=== PATIENT | female | born 1990 | race Caucasian/White ===

== ENCOUNTER 2025-03-09 13:05 | Outpatient (CLI) | payer OTHER, SELFPAY ==
--- OUTSIDE RECORDS SUMMARY | 2025-03-09 13:49 | XMS_ITS | Clinical Summary ---
Author Organization [facility] [employer] Address [address] [place] [address] Care Team Providers Care Balance Truer Name Role Phone Madhu Martínez MD Primary Care Provider [phone] Source Comments [facility] [employer],non-owned Affiliates and Associated Physician Practices is amultiple site organization consisting of ambulatory clinics and hospital sitesin [place] and [place]. This disclosure is being madepursuant to the Care Everywhere program and may not contain all information available regarding this patient. Last updated 18.[facility] [employer] Allergies No known active allergies Medications * Be aware that medications may not be up to date on this document. Alwaysverify current medications with the patient. escitalopram (LEXAPRO) 10 MG tablet Take 10 mg by mouth once daily Active Social History Tobacco Use Types Packs/Day Years Used Date Smoking Tobacco: Never Assessed Comments Unknown Sex and Gender Information Value Date Recorded Sex Assigned at Not on file Legal Sex Female 6:56 AM CDT Gender Identity Not on file Sexual Orientation Not on file Last Filed Vital Signs Vital Sign Reading Time Taken Comments Blood Pressure 116/68 01/21/2018 7:48 AM CDT Pulse 100 01/21/2018 7:48 AM CDT Temperature 36.8 C (98.2 F) 01/21/2018 7:48 AM CDT Respiratory Rate - - Oxygen Saturation 99% 01/21/2018 7:48 AM CDT Inhaled Oxygen Concentration - - Weight 74.8 kg (165 lb) 01/21/2018 7:48 AM CDT Height 157.5 cm (5' 2) 01/21/2018 7:48 AM CDT Body Mass Index 30.18 01/21/2018 7:48 AM CDT Plan of Treatment Health Maintenance Due Date Last Done Comments HIV SCREENING 2003 HEPATITIS C SCREENING 06/16/2006 DTAP/TDAP/TD VACCINES (1 - Tdap) 2007 HEPATITIS B VACCINE (1 of 3 - 19+ 3-dose series) 2007 HPV VACCINE (1 - 3-dose SCDM series) 2015 DEPRESSION SCREENING 04/27/2024 COVID-19 VACCINE (1 - 2023-2 5 season) 2024 INFLUENZA VACCINE (#1) 2024 ZOSTER VACCINE (1 of 2) 2038 HIB VACCINE Aged Out No longer eligi ble based on patient's age to complete this topic MENINGOCOCCAL (Group B) VACC INE SHARED DECISION-MAKING Aged Out No longer eligibl e based on patient's age to complete this topic MENINGOCOCCAL GROUPS A/C/Y/W VACCINE Aged Out No longer eligible b ased on patient's age to complete this topic PNEUMOCOCCAL VACCINE Aged Out No long er eligible based on patient's age to complete this topic Insurance [employer] Care Teams Balance Truer Relationship Specialty Start Date [place] Date Madhu [place] [address] [place] [address] [address] PCP - General Internal Medicine 01/21/18
--- OUTSIDE RECORDS SUMMARY | 2025-03-09 13:49 | XMS_ITS | Clinical Summary ---
Author Organization [facility] Address [address] [place] [address] Phone Care Team Providers Care Attendant Honor Bar Name Role Phone Provider, None Primary Care Provider Unavailabl e Allergies No known active allergies Medications escitalopram (LEXAPRO) 20 MG Tablet Take 20 mg by mouth daily. 03/08/2020 Active buPROPion (WELLBUTRIN) 75 MG Tablet Take 75 mg by mouth daily. Active Active Problems No known active problems Encounters Date Type Department Care Team Description 01/02/2025 5:45 PM CDT Urgent Care Visit [facility] [address] [place] [address] Bisi Yañez APRN, CNP Respiratory infection (Primary Dx); Sore throat Discharge Disposition: Discharged to home or Selfcare 01/02/2025 Travel 12/29/2024 12:20 PM CDT Urgent Care Visit [facility] [address] [place] [address] Trino Gonzalez, ANGELICA Acute ear pain, left (Primary Dx) Discharge Disposition: Discharged to home or Selfcare 12/29/2024 Travel from Last 3 Months Social History Tobacco Use Types Packs/Day Years Used Date Smoking Tobacco: Never Smokeless Tobacco: Never Tobacco Cessation:Counseling Given: Not Answered Alcohol Use Standard Drinks/Week Comments Yes 0 (1 standard drink = 0.6 oz pur e alcohol) Comments No Sex and Gender Information Value Date Recorded Sex Assigned at Not on file Legal Sex Female 10:46 PM CDT Gender Identity Not on file Sexual Orientation Not on file Last Filed Vital Signs Vital Sign Reading Time Taken Comments Blood Pressure 108/60 01/02/2025 5:47 PM CDT Pulse 99 01/02/2025 5:47 PM CDT Temperature 36.6 C (97.9 F) 01/02/2025 5:47 PM CDT Respiratory Rate 16 01/02/2025 5:47 PM CDT Oxygen Saturation 99% 01/02/2025 5:47 PM CDT Inhaled Oxygen Concentration - - Weight 78.9 kg (174 lb) 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 Height 157.5 cm (5' 2) 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 Body Mass Index 31.83 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 Plan of Treatment Health Maintenance Due Date Last Done Comments Hepatitis C Virus (HCV) Screening 1988 Hepatitis B Immunization (1 of 3 - 19+ 3-dose series) 2007 Pap Smear 2009 Human Papillomavirus (HPV) Immunization (1 - 3-dose SCDM series) 2015 Cervical Cancer Screening (CCS) 2018 HPV/Cotest 2018 Influenza Immunization (#1) 12/26/202402/25, 02/11/2016 SARS-COV-2 Immunization (2024- season) 2024 08/06/2020, 07/09/2020 Respiratory Syncytial Virus (RSV) Immunization (Adult) (1 - 1-dose 75+ series) 2063 DTaP/Tdap/Td Immunization Discontinued 2015, 01/14/2013 TdaP Immunization Completed 03/26/2016, 01/14/2013 Meningococcal Immunization (ACWY) Aged Out No longer eligible based on patient's age to complete this topic Pneumococcal Immunization Combined Aged Out No longer eligible based on patient's age to complete this topic Rotavirus Immunization Aged Out No lo nger eligible based on patient's age to complete this topic Procedures Procedure Name Priority Date/Time Associated Diagnosis Comments POC GROUP A STREP BY MOLECULAR Routine 01/02/2025 5:53 PM CDT Sore throat from Last 3 Months Results * POC GROUP A STREP BY MOLECULAR (01/02/2025 5:53 PM CDT) STREP A DNA Negative Negative, Invalid PROCEDURE CONTROL Valid 01/02/2025 5:53 PM CDT Bisi Yañez WEB CONTENT & SOCIAL MEDIA MANAGER, PERFUMER POINT OF CARE TEST ING (MANUAL) Final Result from Last 3 Months Insurance [employer] Care Teams Attendant Honor Bar Relationship Specialty Start Date End Date Provider, None [place] PCP - General 04/06/20
--- OUTSIDE RECORDS SUMMARY | 2025-03-09 13:49 | XMS_ITS | Clinical Summary ---
Author Organization [facility] Address [address] [place] [address] Care Team Providers Care Physician Anesthesiologist Name Role Phone Madhu Martínez MD Primary Care Provider Allergies No known active allergies Medications escitalopram (LEXAPRO) 20 mg tablet Take 1 tablet (20 mg total) by mouth daily Active buPROPion (WELLBUTRIN) 75 mg tablet Take 1 tablet (75 mg total) by mouth daily Active semaglutide (Wegovy) 1.7 mg/0.75 mL auto-injector Inject 0.75 mL (1.7 mg total) under the skin every 7 days Active Active Problems Problem Noted Date Diagnosed Date Unilateral occipital headache 11/16/2017 Immunizations Immunization Administration Dates Next Due PPD TEST 12/11/2023 Medical History Medical History Date Comments Heart murmur Heart murmur Family History Medical History Relation Name Comments Hypertension Brother Hypertension; Hypertension Maternal Grandmother Hyperte nsion; Relation Name Status Comments Brother Maternal Grandmother Social History Tobacco Use Types Packs/Day Years Used Date Smoking Tobacco: Never Alcohol Use Standard Drinks/Week Comments Yes 0 (1 standard drink = 0.6 oz pur e alcohol) Comments No Sex and Gender Information Value Date Recorded Sex Assigned at Not on file 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 Gender Identity Not on file Sexual Orientation Not on file Last Filed Vital Signs Vital Sign Reading Time Taken Comments Blood Pressure 102/70 12/11/2023 8:43 AM CDT Pulse 79 12/11/2023 8:43 AM CDT Temperature 36.3 C (97.4 F) 12/11/2023 8:43 AM CDT Respiratory Rate 16 12/11/2023 8:43 AM CDT Oxygen Saturation 98% 12/11/2023 8:43 AM CDT Inhaled Oxygen Concentration - - Weight 58.1 kg (128 lb) 12/11/2023 8:43 AM CDT Height 157.5 cm (5' 2) 12/11/2023 8:43 AM CDT Body Mass Index 23.41 12/11/2023 8:43 AM CDT Plan of Treatment Health Maintenance Due Date Last Done Comments Cervical Cancer Screening 1988 Depression Screening 1988 Hepatitis C Screening 1988 Varicella Vaccines (1 of 2 - 13+ 2-dose series) 2001 Hepatitis B Screening 2006 Regular Well Visit/Exam 18-64 2006 HPV Vaccines (1 - 3-dose SCD M series) 2015 Covid-19 Vaccine (3 - 2024-2 6 season) 2024 08/06/2020, 07/09/2020 Influenza Vaccine (#1) 2024 , 02/11/2016 DTaP/Tdap/Td Vaccine (3 - Td or Tdap) 03/26/2026 03/26/2016, 01/14/2013 Pneumococcal vaccine <65 Aged Out No longer eligible based on patient's age to complete this topic [facility] Care Teams Physician Anesthesiologist Relationship Specialty Start Date End Date Madhu Martínez MD PCP - General 11/16/17
[2025-03-09 13:52] LABS: Hematocrit 38.0 % (37.0-47.0); Hemoglobin 12.5 g/dL (12.0-15.0); Mean Corpuscular HGB Conc 32.9 g/dl (32-36); Mean Corpuscular Hemoglobin 32.5 pg (26-34); Mean Corpuscular Volume 98.7 fl (80-100); Platelet Count Result 346 k/mm3 (150-375); Red Blood Count 3.85 M/mm3 (4.2-5.4); White Blood Count 10.8 K/mm3 (4.5-10.0)
[2025-03-09 14:44] LABS: Thyroid Stimulating Hormone Reflex 1.250 uIU/mL (0.465-4.68)
[2025-03-10 07:09] LABS: FSH 4.0 mIU/mL (.)
[2025-03-10 10:09] LABS: LH 11.2 mIU/mL (.)
== END 2025-03-09 13:06 | disposition home or self-care (01) ==
LOC: ANHLAB 13:06
PROVIDERS: PCP Internal Medicine; Visit Provider Obstetrics & Gynecology
DX: N95.1 Menopausal and female climacteric states (principal); N92.1 Excessive and frequent menstruation with irregular cycle
CPT/HCPCS: 36415; 83001; 83002; 84443; 85027